=== PATIENT | female | born 1985 | race African-American/Black ===

== ENCOUNTER 2019-07-02 09:18 | Emergency (ER) | payer BC, OTHER ==
[~2019-07-02] VITALS: Ht 170.2 cm; Wt 54.4 kg
--- NOTE | 2019-07-02 09:22 | NUR ---
Pt called to triage, pt not in waiting room
--- NOTE | 2019-07-02 09:30 | NUR ---
Rash to scalp since may 09. Patient a/ox4, breathing even and unlabored, no sob noted, needs attended. Kept comfortable.
[2019-07-02] MEDS ORDERED: ACETAMINOPHEN ES 500 MG TABLET PO ONE (10:30)
--- NOTE | 2019-07-02 11:14 | NUR ---
DR. LOYD AT BEDSIDE.
[2019-07-02 11:21] VITALS: BP 134/77
--- NOTE | 2019-07-02 11:21 | NUR ---
Patient discharged to home in stable condition. Written and verbal after care instructions given. Patient verbalizes understanding of instruction.
== END 2019-07-02 11:22 | disposition home or self-care (01) ==
LOC: ER 09:18
DX: M54.2 Cervicalgia (principal); R51 Headache